=== PATIENT | female | born 1980 | race Caucasian/White ===

== ENCOUNTER 2017-12-15 21:49 | Emergency (ER) | payer OTHER ==
[~2017-12-15] VITALS: Ht 170.2 cm; Wt 63.5 kg
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
[2017-12-15] MEDS ORDERED: IBUPROFEN 400 MG TABLET ONE (23:25)
[2017-12-15] MEDS ORDERED: IBUPROFEN 400 MG TABLET PO ONE (23:30)
[2017-12-16 00:56] VITALS: BP 147/79
--- NOTE | 2017-12-16 00:57 | NUR ---
Patient discharged to [employer] custody for transport to residential in stable condition. Written and verbal after care instructions given. Patient verbalizes understanding of instruction. Pt ambulatory with a steady gait. VSS, NAD noted on DC. Denies complaint on DC.
== END 2017-12-16 01:01 ==
LOC: ER 21:50
DX: S13.4XXA Sprain of ligaments of cervical spine, initial encounter (principal); V49.49XA Driver injured in collision with other motor vehicles in traffic accident, initial encounter; Y93.89 Activity, other specified; Y92.413 State road as the place of occurrence of the external cause; Y99.8 Other external cause status
CPT/HCPCS: 72125; 99284; A4606; Z7610